=== PATIENT | female | born 1980 | race Caucasian/White ===

== ENCOUNTER 2016-10-09 22:16 | Emergency (ER) | payer MEDICAID ==
[~2016-10-09] VITALS: Ht 157.5 cm; Wt 59.5 kg
[~2016-10-09 22:16] MED LIST: FOLI-49 PO; MULTI PO
[2016-10-09 22:19] VITALS: Ht 157.5 cm; Wt 59.5 kg
[2016-10-09 23:13] LABS: BASOPHILS % 0.4 % (0.0-2.0); EOSINOPHILS # 0.1 10^3/ul (0.0-0.5); EOSINOPHILS % 0.5 % (0.0-7.0); HEMATOCRIT 39.9 % (37.0-47.0); HEMOGLOBIN 13.1 g/dl (12.0-16.0); LYMPHOCYTES # 2.6 10^3/ul (0.8-2.9); MEAN CORPUSCULAR HGB CONC 32.8 g/dl (32.0-37.0); MEAN CORPUSCULAR VOLUME 88.3 fl (82.0-101.0); MEAN PLATELET VOLUME 11.8 fl (7.4-10.4); MONOCYTE # 0.5 10^3/ul (0.3-0.9); MONOCYTES % 4.3 % (0.0-11.0); NEUTROPHIL # 7.3 10^3/ul (1.6-7.5); NEUTROPHILS % 69.5 % (39.0-77.0); PLATELET COUNT 287 10^3/UL (140-415); RED BLOOD COUNT 4.52 10^6/ul (4.20-5.40); RED CELL DISTRIBUTION WIDTH 16.5 % (11.5-14.5); WHITE BLOOD COUNT 10.6 10^3/ul (4.8-10.8)
[2016-10-09 23:23] LABS: ADD UMIC NO; UR ASCORBIC ACID NEGATIVE (NEGATIVE); UR BILIRUBIN (Dip) NEGATIVE (NEGATIVE); UR BLOOD (Dip) NEGATIVE (NEGATIVE); UR CLARITY CLEAR (CLEAR); UR COLOR STRAW (YELLOW); UR GLUCOSE (Dip) NEGATIVE (NEGATIVE); UR KETONES (Dip) NEGATIVE (NEGATIVE); UR LEUKOCYTE ESTERASE (Dip) NEGATIVE Leu/ul (NEGATIVE); UR NITRITE (Dip) NEGATIVE (NEGATIVE); UR SPECIFIC GRAVITY (Dip) 1.005 (1.003-1.030); UR TOTAL PROTEIN (Dip) NEGATIVE (NEGATIVE); UR UROBILINOGEN (Dip) NEGATIVE (NEGATIVE)
[2016-10-09 23:34] LABS: ALBUMIN/GLOBULIN RATIO 1.42; BILIRUBIN,INDIRECT 0.2 mg/dl (0-1.1); BILIRUBIN,TOTAL 0.2 mg/dl (0.2-1.3); CALCIUM 9.6 mg/dl (8.4-10.2); CREATININE 0.55 mg/dl (0.44-1.00); POTASSIUM 4.5 mmol/L (3.5-5.1); TOTAL PROTEIN 8.5 g/dl (6.1-8.1)
[2016-10-10] MEDS ORDERED: SOD CHLORIDE 0.9% 1,000 ML IV ONE
[2016-10-10] MEDS ORDERED: LIDOCAINE/MYLANTA 40 ML BTL PO ONE
[2016-10-10] MEDS ORDERED: KETOROLAC 30 MG INJ IV STA (00:04)
[2016-10-10] MEDS ORDERED: MAG-19 PO (00:35)
[2016-10-10 00:45] VITALS: BP 136/65; PULSE 74; RESP 17; TEMP 98
--- NOTE | 2016-10-10 01:58 | ERD ---
ER Documentation Chief Complaint Date/Time DATE: 10/10/16 TIME: 01:53 Chief Complaint ruq abd pain with nausea x 2 days HPI 36-year-old female complaining of epigastric pain 2 days. Patient stated the pain had a sudden onset, but comes and goes. Pain occurs every 2-3 hours, and lasting about 15 minutes each. Patient reports subjective fever, and nausea. States the pain is not related to eating. Denies fever or chills. Denies dysuria. Denies vomiting or diarrhea. Patient denies tobacco or alcohol use. States that she smoked methamphetamine 2 days ago. ROS All systems reviewed and are negative except as per history of present illness. Medications Home Meds Active Scripts Magaldrate/Simethicone* (Mylanta*) 355 Ml Susp, 30 ML PO QID Y for GASTROINTESTINAL UPSET, #1 BOTTLE Prov:KELLY GUERRERO. HOG WORKER 10/10/16 Multivitamins* (Theragran*) 1 Tab Tab, 1 TAB PO DAILY, #30 TAB Prov:DARYL TOURE 02/18/16 Folic Acid* (Folic Acid*) 1 Mg Tablet, 1 MG PO DAILY for 30 Days, TAB Prov:DARYL TOURE 02/18/16 Allergies Allergies: Coded Allergies: No Known Allergy (Unverified , 02/17/16) PMhx/Soc History of Surgery: Yes (Gallbladder removed) Anesthesia Reaction: No Hx Neurological Disorder: No Hx Respiratory Disorders: No Hx Cardiac Disorders: No Hx Psychiatric Problems: No Hx Miscellaneous Medical Probl: No Hx Alcohol Use: No Hx Substance Use: Yes (METHAMPHETAMINE) Hx Tobacco Use: Yes Smoking Status: Current every day smoker Physical Exam Vitals Vital Signs Date Time Temp Pulse Resp B/P Pulse Ox O2 Delivery O2 Flow Rate FiO2 10/10/16 00:45 98.0 74 17 136/65 100 Room Air 10/09/16 22:19 97.5 60 20 145/67 100 Physical Exam General: Well-developed, well-nourished, conscious and coherent, in no distress Skin: Warm and dry without rash, good texture and turgor Head: Normocephalic without evidence of trauma Eyes: Sclera and conjunctivae normal; pupils equal, round, and reactive to light; extraocular movements are intact Neck: Supple without meningismus or adenopathy. Carotids are equal. Trachea midline. No bruits or JVD Chest: Normal AP diameter. Good expansion without retractions. Nontender. Lungs are clear to auscultate bilaterally with good tidal volume Heart: Regular rate and rhythm. No murmur, rub, or gallops heard Abdomen: Soft, epigastric tenderness without masses, guarding, or rebound. No right upper quadrant or right lower quadrant tenderness. Bowel sounds are active. No hepatosplenomegaly Back: Without spinal or CVA tenderness Pelvis: Nontender to palpation and stable to compression Extremities: Full range of motion. Good strength bilaterally. No clubbing, cyanosis, or edema. Peripheral pulses are intact. Sensation intact Neuro: Alert and oriented 4, GCS 15. Cranial nerves grossly intact. Motor and sensory exams nonfocal. Moves all extremities. Speech clear. Gait normal Result Diagram: 10/09/16225310/09/162253 Results 24 hrs Laboratory Tests Test 10/09/16 22:54 White Blood Count 10.610^3/ul Red Blood Count 4.5210^6/ul Hemoglobin 13.1g/dl Hematocrit 39.9% Mean Corpuscular Volume 88.3fl Mean Corpuscular Hemoglobin 29.0pg Mean Corpuscular Hemoglobin Concent 32.8g/dl Red Cell Distribution Width 16.5% Platelet Count 77066^3/UL Mean Platelet Volume 11.8fl Neutrophils % 69.5% Lymphocytes % 25.0% Monocytes % 4.3% Eosinophils % 0.5% Basophils % 0.4% Nucleated Red Blood Cells % 0.0/100WBC Neutrophils # 7.310^3/ul Lymphocytes # 2.610^3/ul Monocytes # 0.510^3/ul Eosinophils # 0.110^3/ul Basophils # 0.010^3/ul Nucleated Red Blood Cells # 0.010^3/ul Urine Color STRAW Urine Clarity CLEAR Urine pH 7.0 Urine Specific [place] 1.005 Urine Ketones NEGATIVEmg/dL Urine Nitrite NEGATIVEmg/dL Urine Bilirubin NEGATIVEmg/dL Urine Urobilinogen NEGATIVEmg/dL Urine Leukocyte Esterase NEGATIVELeu/ul Urine Hemoglobin NEGATIVEmg/dL Urine Glucose NEGATIVEmg/dL Urine Total Protein NEGATIVEmg/dl Sodium Level 140mmol/L Potassium Level 4.5mmol/L Chloride Level 99mmol/L Carbon Dioxide Level 27mmol/L Anion Gap 19 Blood Urea Nitrogen 8mg/dl Creatinine 0.55mg/dl Glucose Level 111mg/dl Calcium Level 9.6mg/dl Total Bilirubin 0.2mg/dl Direct Bilirubin 0.00mg/dl Indirect Bilirubin 0.2mg/dl Aspartate Amino Transf (AST/SGOT) 23IU/L Alanine Aminotransferase (ALT/SGPT) 26IU/L Alkaline Phosphatase 67IU/L Total Protein 8.5g/dl Albumin 5.0g/dl Globulin 3.50g/dl Albumin/Globulin Ratio 1.42 Lipase 65U/L Current Medications Medications (Trade) Dose Ordered Sig/Varinder Route PRN Reason Start Time Stop Time Status Last Admin Dose Admin Sodium Chloride (NS) 1,000 ml @ 1,000 mls/hr Q1H ONCE IV 10/10/16 00:00 10/10/16 00:53 DC 10/09/16 23:52 Miscellaneous Medication (Gi Cocktail (2)) 40 ml ONCE ONCE PO 10/10/16 00:00 10/10/16 00:01 DC 10/10/16 00:00 Ketorolac Tromethamine (Toradol) 30 mg ONCE STAT IV 10/10/16 00:04 10/10/16 00:06 DC 10/10/16 00:25 Procedures/MDM Well-appearing 36-year-old female presented ED with epigastric abdominal pain 2 days. Patient does not have any right upper or right lower quadrant tenderness on palpation. I have low suspicion for acute cholecystitis, appendicitis, pancreatitis, no other acute abdomen. I also have low suspicion for acute coronary syndrome. Patient reports improvement of epigastric pain after GI cocktail. Patient was also given Toradol IV and normal saline 1 L bolus in the ED for Review of patient's medical records indicate that she was hospitalized in February 2016 for acute pancreatitis. Today, her CBC, CMP, lipase, and UA are all unremarkable. I doubt she has recurrence of pancreatitis. Patient appears well, stable for discharge and outpatient management. Medical decision making shared with patient and family. Education provided to patient and family. Patient and family expressed understanding of the plan. Medications on discharge: Mylanta. Follow-up: Primary care provider in 2-3 days or return to ED if worse. Disclaimer: Inadvertent spelling and grammatical errors are likely due to EHR/ dictation software use and do not reflect on the overall quality of patient care. Also, please note that the electronic time recorded on this note does not necessarily reflect the actual time of the patient encounter. Departure Diagnosis: Primary Impression: Epigastric pain Additional Impression: Drug abuse Condition: Stable Patient Instructions: Epigastric Pain (Uncertain Cause) [facility]errals[facility] Usted se mckenzie hecho un examen mdico de control que le indica que no est en eboni condicin que requiera tratamiento urgente en el Departamento de Emergencia. Un estudio ms profundo y el tratamiento de burnett condicin pueden esperar sin ningn riesgo hasta que usted sea atendida/o en el consultorio de burnett mdico o eboni cl rachana. Es responsabilidad suya arreglar eboni charlotte para el seguimiento del jett. MANEJO DE CONDICIONES NO URGENTES EN EL FUTURO 1) Si usted tiene un mdico de atencin primaria: Usted debera llamar a burnett mdico de atencin primaria antes de venir al departamento de emergencia. Despus de las horas de consultorio, burnett doctor o burnett asociado/a est disponible por telfono. El mdico o enfermero de nasrin en el servicio telefnico puede asesorarle por camila medio para atender el problema, o jett contrario se puede programar eboni charlotte. 2) Si usted no tiene un mdico de atencin primaria: Llame al mdico o clnica de referencia que aparece abajo caryl las horas de consultorio para hacer eboni charlotte para que le vean. CLINICAS: [facility] [phone] [facility] [phone] [facility] [phone] [facility]. [facility] [phone] [facility]. [facility] [phone] [facility]. [phone] [address] Additional Instructions: Llame al doctor MAANA y mira eboni [place] PARA DENTRO DE 2-3 SILVA.Dgale a la secretaria que nosotros le instruimos hacer esta charlotte.Avise o llame si burnett condicin se empeora antes de la charlotte. Regresa aqui si peor o no mejor. KELLY GUERRERO. LAILA Oct 10, 2016 01:58
== END 2016-10-10 00:53 | disposition home or self-care (01) ==
LOC: FTE 22:16
DX: R10.13 Epigastric pain (principal); R40.2412 Glasgow coma scale score 13-15, at arrival to emergency department; F15.10 Other stimulant abuse, uncomplicated; F17.210 Nicotine dependence, cigarettes, uncomplicated
CPT/HCPCS: 36415; 80053; 81003; 83690; 85025; 96374; J1885; J7030; Z7502; Z7610

== ENCOUNTER 2017-02-08 22:13 | Emergency (ER) | payer SELFPAY ==
[~2017-02-08] VITALS: Ht 167.6 cm; Wt 60.3 kg
[~2017-02-08 22:13] MED LIST changes: +MAG-19 PO
[2017-02-08 22:34] VITALS: Ht 167.6 cm; Wt 60.3 kg
[2017-02-09] MEDS ORDERED: morphine 4 MG/ML VIAL IV STA (01:18)
[2017-02-09] MEDS ORDERED: SOD CHLORIDE 0.9% 1,000 ML IV STA (01:18)
[2017-02-09] MEDS ORDERED: ONDANSETRON 4 MG INJ IV STA (01:18)
--- NOTE | 2017-02-09 02:01 | ERD ---
ER Documentation Chief Complaint Chief Complaint AP reports LUQ pain that radiates to the back since yesterday n/v HPI 37-year-old female presents here to emergency department for complaints of epigastric pain radiating to the back that started yesterday. Patient also had vomiting episodes. Patient describes the pain as sharp pain, 8/10 scale, accompanied with vomiting. Patient has history of acute pancreatitis before, was admitted to the hospital 1 year ago for the same problem. Patient was a previous alcoholic. Patient denies any fever or chills. Patient denies any diarrhea or constipation. ROS All systems reviewed and are negative except as per history of present illness. Medications Home Meds Active Scripts Magaldrate/Simethicone* (Mylanta*) 355 Ml Susp, 30 ML PO QID Y for GASTROINTESTINAL UPSET, #1 BOTTLE Prov:KELLY GUERRERO. COLLAR STAY FUSER TENDER 10/10/16 Multivitamins* (Theragran*) 1 Tab Tab, 1 TAB PO DAILY, #30 TAB Prov:DARYL TOURE 02/18/16 Folic Acid* (Folic Acid*) 1 Mg Tablet, 1 MG PO DAILY for 30 Days, TAB Prov:DARYL TOURE 02/18/16 Allergies Allergies: Coded Allergies: No Known Allergy (Unverified , 02/17/16) PMhx/Soc History of Surgery: Yes (Gallbladder removed) Anesthesia Reaction: No Hx Neurological Disorder: No Hx Respiratory Disorders: No Hx Cardiac Disorders: No Hx Psychiatric Problems: No Hx Miscellaneous Medical Probl: No Hx Alcohol Use: No Hx Substance Use: Yes (METHAMPHETAMINE) Hx Tobacco Use: Yes FmHx Family History: No coronary disease, No diabetes, No other Physical Exam Vitals Vital Signs Date Time Temp Pulse Resp B/P Pulse Ox O2 Delivery O2 Flow Rate FiO2 02/08/17 22:34 98.1 54 16 130/57 100 Physical Exam GENERAL: The patient is well developed and appropriate for usual state of health, in no apparent distress. CHEST: Clear to auscultation bilaterally. There are no rales, wheezes or rhonchi. HEART: Regular rate and rhythm. No murmurs, clicks, rubs or gallops. No S3 or S4. ABDOMEN: Soft, nontender and nondistended. Good bowel sounds. No rebound or guarding. No gross peritonitis. No gross organomegaly or masses. No Cook sign or McBurney point tenderness. BACK: No midline or flank tenderness. EXTREMITIES: Equal pulses bilaterally. There is no peripheral clubbing, cyanosis or edema. No focal swelling or erythema. Full range of motion. Grossly neurovascularly intact. NEURO: Alert and oriented. Cranial nerves 2-12 intact. Motor strength in all 4 extremities with 5/5 strength. Sensation grossly intact. Normal speech and gait. SKIN: There is no apparent rash or petechia. The skin is warm and dry. HEMATOLOGIC AND LYMPHATIC: There is no evidence of excessive bruising or lymphedema. No gross cervical, axillary, or inguinal lymphadenopathy. Result Diagram: 02/09/17 01502/09/17 015 Results 24 hrs Laboratory Tests Test 02/09/17 01:50 White Blood Count 10.210^3/ul Red Blood Count 3.6710^6/ul Hemoglobin 10.5g/dl Hematocrit 32.2% Mean Corpuscular Volume 87.7fl Mean Corpuscular Hemoglobin 28.6pg Mean Corpuscular Hemoglobin Concent 32.6g/dl Red Cell Distribution Width 15.9% Platelet Count 67936^3/UL Mean Platelet Volume 11.5fl Neutrophils % 80.8% Lymphocytes % 15.7% Monocytes % 2.5% Eosinophils % 0.2% Basophils % 0.5% Nucleated Red Blood Cells % 0.0/100WBC Neutrophils # 8.310^3/ul Lymphocytes # 1.610^3/ul Monocytes # 0.310^3/ul Eosinophils # 0.010^3/ul Basophils # 0.110^3/ul Nucleated Red Blood Cells # 0.010^3/ul Urine Color YELLOW Urine Clarity SLIGHTLY CLOUDY Urine pH 6.0 Urine Specific [place] 1.029 Urine Ketones NEGATIVEmg/dL Urine Nitrite NEGATIVEmg/dL Urine Bilirubin NEGATIVEmg/dL Urine Urobilinogen NEGATIVEmg/dL Urine Leukocyte Esterase NEGATIVELeu/ul Urine Microscopic RBC 1/HPF Urine Microscopic WBC 3/HPF Urine Squamous Epithelial Cells FEW/HPF Urine Amorphous Crystals FEW/HPF Urine Hemoglobin NEGATIVEmg/dL Urine Glucose NEGATIVEmg/dL Urine Total Protein NEGATIVEmg/dl Sodium Level 140mmol/L Potassium Level 4.6mmol/L Chloride Level 103mmol/L Carbon Dioxide Level 28mmol/L Anion Gap 14 Blood Urea Nitrogen 13mg/dl Creatinine 0.64mg/dl Glucose Level 119mg/dl Calcium Level 8.5mg/dl Total Bilirubin 0.1mg/dl Direct Bilirubin 0.00mg/dl Indirect Bilirubin 0.1mg/dl Aspartate Amino Transf (AST/SGOT) 27IU/L Alanine Aminotransferase (ALT/SGPT) 34IU/L Alkaline Phosphatase 63IU/L Total Protein 6.7g/dl Albumin 3.9g/dl Globulin 2.80g/dl Albumin/Globulin Ratio 1.39 Lipase 97U/L Current Medications Medications (Trade) Dose Ordered Sig/Varinder Route PRN Reason Start Time Stop Time Status Last Admin Dose Admin Sodium Chloride (NS) 1,000 ml @ 1,000 mls/hr Q1H STAT IV 02/09/17 01:18 02/09/17 02:17 DC 02/09/17 02:04 Morphine Sulfate (morphine) 4 mg ONCE STAT IV 02/09/17 01:18 02/09/17 01:20 DC 02/09/17 02:03 Ondansetron HCl (Zofran Inj) 4 mg ONCE STAT IV 02/09/17 01:18 02/09/17 01:20 DC 02/09/17 02:03 Famotidine (Pepcid Iv) 20 mg ONCE ONCE IV 02/09/17 03:00 02/09/17 03:01 DC 02/09/17 02:57 Hydromorphone HCl (Dilaudid) 1 mg ONCE STAT IV 02/09/17 02:53 02/09/17 02:54 DC 02/09/17 02:58 Patient was given medication for pain here in emergency department, after treatment, patient verbalized feeling much better. Patient's pain is improved. Normal saline IV bolus was given here in emergency department for rehydration, patient tolerated IV fluids. Normal saline IV bolus was given here in emergency department for rehydration, patient tolerated IV fluids. PROCEDURE: CT ABDOMEN/PELVIS WITHOUT CONTRAST CLINICAL INDICATION: 37-year-old female with abdominal pain. TECHNIQUE: The study was performed utilizing a [employer] VCT 64-slice CT scanner. Direct axial sections were obtained through the abdomen and pelvis without the use of intravenous contrast material. Sagittal and coronal reformations were obtained. One or more of the following dose reduction techniques were utilized: automated exposure control, adjustment of the mA and/ or kV according to patient's size and/or the use of iterative reconstruction technique. DICOM images are available. The images were reviewed on a PACS workstation. CTD/vol = 7.4 mGy; Total Exam DLP = 414.6 mGy-cm. COMPARISON: CT abdomen/pelvis February 16, 2017. FINDINGS: The lung bases are unremarkable. There is no evidence for significant pleural effusion. The liver has a normal size and contour. Nonspecific calcifications are seen within the right lobe of the liver extending to the dome of the diaphragm measuring approximately 6 x 6 mm on axial image 3-13 without significant interval change. No intrahepatic nor extrahepatic biliary ductal dilatation is seen. Surgical clips are seen within the gallbladder fossa from prior cholecystectomy. The pancreas is without areas of abnormal attenuation. The spleen is identified and has a normal size without abnormal density. The adrenal glands are unremarkable. The kidneys are without abnormal density. No hydroureteronephrosis nor nephroureterolithiasis is evident. The urinary bladder contains urine. There is mildly dilated fluid-filled loops of small bowel without obstruction suggestive of an enteritis. There is mild retained stool within the ascending and transverse colon. The appendix is visualized and is without abnormal thickening or surrounding inflammatory reaction. The uterus is anteflexed. There is trace pelvic free fluid. The aortoiliac vessels are minimally calcified but without aneurysmal dilatation. The osseous structures are intact. IMPRESSION: 1. Status post cholecystectomy. 2. Mildly dilated fluid-filled loops of small bowel without obstruction suggestive of an enteritis. 3. No CT evidence for appendicitis. 4. Mild retained stool within the proximal colon without obstruction. 5. Trace pelvic free fluid. .Gerald Nunez MD, MD Date Time Electronically viewed and signed by .Gerald Nunez MD, on 02/09/2017 03:02 .M/ CC: STACIA MARTÍNEZ NP Procedures/MDM Medical Decision Making: Symptoms was likely is consistent with enteritis is seen in the CT scan. No pancreatitis noted, lipase is normal. There is low suspicion for abdominal emergencies at this time. Patients abdominal exam is normal at this time. Patients radiology exam does not show any abdominal emergencies at this time. There is low suspicion for appendicitis, cholecystitis , abdominal aortic aneurysms or peritonitis at this time. There is low suspicion for sepsis. Patient appears well and is hemodynamically stable. Disposition: Home. Condition: Stable Prescription Bentyl, [place], ibuprofen, Zofran Instructions: Patient is advised to take medications as prescribed. Patient is advised to rest, increase fluid intake and do brat diet for next 1-2 days and progress as tolerated. Patient is advised that if symptoms are worse, severe abdominal pain, uncontrolled vomiting, high fever, severe flank pain, worst signs and symptoms, to return to the emergency department immediately. Otherwise, patient can follow up with primary care doctor in 5-7 days. Disclaimer: Inadvertent spelling and grammatical errors are likely due to EHR/ dictation software use and do not reflect on the overall quality of patient care. Also, please note that the electronic time recorded on this note does not necessarily reflect the actual time of the patient encounter. Departure Diagnosis: Primary Impression: Enteritis Condition: Stable Patient Instructions: Gastroenteritis, Viral (6Y-Adult) Additional Instructions: Patient is advised to take medications as prescribed. Patient is advised to rest, increase fluid intake and do brat diet for next 1-2 days and progress as tolerated. Patient is advised that if symptoms are worse, severe abdominal pain , uncontrolled vomiting, high fever, severe flank pain, worst signs and symptoms , to return to the emergency department immediately. Otherwise, patient can follow up with primary care doctor in 5-7 days. STACIA MARTÍNEZ NP Feb 09, 2017 02:01
[2017-02-09 02:29] LABS: BASOPHIL # 0.1 10^3/ul (0.0-0.1); BASOPHILS % 0.5 % (0.0-2.0); EOSINOPHILS % 0.2 % (0.0-7.0); HEMATOCRIT 32.2 % (37.0-47.0); HEMOGLOBIN 10.5 g/dl (12.0-16.0); LYMPHOCYTES # 1.6 10^3/ul (0.8-2.9); LYMPHOCYTES % 15.7 % (15.0-51.0); MEAN CORPUSCULAR HEMOGLOBIN 28.6 pg (29.0-33.0); MEAN CORPUSCULAR HGB CONC 32.6 g/dl (32.0-37.0); MEAN CORPUSCULAR VOLUME 87.7 fl (82.0-101.0); MEAN PLATELET VOLUME 11.5 fl (7.4-10.4); MONOCYTE # 0.3 10^3/ul (0.3-0.9); MONOCYTES % 2.5 % (0.0-11.0); NEUTROPHIL # 8.3 10^3/ul (1.6-7.5); NEUTROPHILS % 80.8 % (39.0-77.0); PLATELET COUNT 326 10^3/UL (140-415); RED BLOOD COUNT 3.67 10^6/ul (4.20-5.40); RED CELL DISTRIBUTION WIDTH 15.9 % (11.5-14.5); WHITE BLOOD COUNT 10.2 10^3/ul (4.8-10.8)
[2017-02-09 02:47] LABS: ALBUMIN 3.9 g/dl (3.3-4.9); ALBUMIN/GLOBULIN RATIO 1.39; BILIRUBIN,INDIRECT 0.1 mg/dl (0-1.1); BILIRUBIN,TOTAL 0.1 mg/dl (0.2-1.3); CALCIUM 8.5 mg/dl (8.4-10.2); CREATININE 0.64 mg/dl (0.44-1.00); POTASSIUM 4.6 mmol/L (3.5-5.1); TOTAL PROTEIN 6.7 g/dl (6.1-8.1)
[2017-02-09] MEDS ORDERED: HYDROmorphONE 1 MG/ML SYG IV STA (02:53)
[2017-02-09 02:54] LABS: ADD UMIC NO; UR AMORPHOUS CRYSTAL FEW /HPF (NONE SEEN); UR ASCORBIC ACID 20 mg/dL (NEGATIVE); UR BILIRUBIN (Dip) NEGATIVE (NEGATIVE); UR BLOOD (Dip) NEGATIVE (NEGATIVE); UR CLARITY SLIGHTLY CLOUDY (CLEAR); UR COLOR YELLOW (YELLOW); UR GLUCOSE (Dip) NEGATIVE (NEGATIVE); UR KETONES (Dip) NEGATIVE (NEGATIVE); UR LEUKOCYTE ESTERASE (Dip) NEGATIVE Leu/ul (NEGATIVE); UR NITRITE (Dip) NEGATIVE (NEGATIVE); UR RBC 1 /HPF (0-5); UR SPECIFIC GRAVITY (Dip) 1.029 (1.003-1.030); UR SQUAMOUS EPITHELIAL CELL FEW /HPF (FEW); UR TOTAL PROTEIN (Dip) NEGATIVE (NEGATIVE); UR UROBILINOGEN (Dip) NEGATIVE (NEGATIVE)
[2017-02-09] MEDS ORDERED: FAMOTIDINE 20 MG INJ IV ONE (03:00)
--- NOTE | 2017-02-09 03:02 | RADRPT ---
PROCEDURE: CT ABDOMEN/PELVIS WITHOUT CONTRAST CLINICAL INDICATION: 37-year-old female with abdominal pain. TECHNIQUE: The study was performed utilizing a [employer] VCT 64-slice CT scanner. Direct axia l sections were obtained through the abdomen and pelvis without the use of intravenous contrast mate rial. Sagittal and coronal reformations were obtained. One or more of the following dose reduction t echniques were utilized: automated exposure control, adjustment of the mA and/or kV according to pat ient's size and/or the use of iterative reconstruction technique. DICOM images are available. The im ages were reviewed on a PACS workstation. CTD/vol = 7.4 mGy; Total Exam DLP = 414.6 mGy-cm. COMPARISON: CT abdomen/pelvis February 16, 2017. FINDINGS: The lung bases are unremarkable. There is no evidence for significant pleural effusion. The liver has a normal size and contour. Nonspecific calcifications are seen within the right lobe of the live r extending to the dome of the diaphragm measuring approximately 6 x 6 mm on axial image 3-13 withou t significant interval change. No intrahepatic nor extrahepatic biliary ductal dilatation is seen. S urgical clips are seen within the gallbladder fossa from prior cholecystectomy. The pancreas is with out areas of abnormal attenuation. The spleen is identified and has a normal size without abnormal density. The adrenal glands are unremarkable. The kidneys are without abnormal density. No hydrouret eronephrosis nor nephroureterolithiasis is evident. The urinary bladder contains urine. There is mil dly dilated fluid-filled loops of small bowel without obstruction suggestive of an enteritis. There is mild retained stool within the ascending and transverse colon. The appendix is visualized and is without abnormal thickening or surrounding inflammatory reaction. The uterus is anteflexed. There is trace pelvic free fluid. The aortoiliac vessels are minimally calcified but without aneurysmal dila tation. The osseous structures are intact. IMPRESSION: 1. Status post cholecystectomy. 2. Mildly dilated fluid-filled loops of small bowel without obstruction suggestive of an enteritis. 3. No CT evidence for appendicitis. 4. Mild retained stool within the proximal colon without obstruction. 5. Trace pelvic free fluid. .Gerald Nunez MD, Date Time Electronically viewed and signed by .Gerald Nunez MD, MD on 02/09/2017 03:02 .Mik/
[2017-02-09] MEDS ORDERED: IBUP-1542 PO (03:11)
[2017-02-09] MEDS ORDERED: HYDR-902 PO (03:11)
[2017-02-09] MEDS ORDERED: ONDA4TAB14 PO (03:11)
[2017-02-09] MEDS ORDERED: DICY10CA60 PO (03:11)
[2017-02-09] MEDS ORDERED: MAG-19 PO (03:39)
[2017-02-09] MEDS ORDERED: FAMO-96 PO (03:39)
[2017-02-09] MEDS ORDERED: LIDOCAINE/MYLANTA 40 ML BTL PO ONE (04:00)
== END 2017-02-09 04:05 | disposition home or self-care (01) ==
LOC: FTE 22:13
DX: K52.9 Noninfective gastroenteritis and colitis, unspecified (principal); Z87.891 Personal history of nicotine dependence
CPT/HCPCS: 36415; 74176; 80053; 81001; 83690; 85025; 96374; 96375; 99285; J1170; J2270; J2405; J7030; 81003

== ENCOUNTER 2017-11-28 10:39 | Inpatient (IN) | END 2017-11-30 10:28 | disposition home or self-care (01) | DRG 392 ==